=== PATIENT | female | born 1950 | race Hispanic/Latino ===

== ENCOUNTER → 2020-05-04 | Outpatient (CLI) | payer OTHER ==
[~2020-05-04] MED LIST: AMLO-73 PO; ASPI81TA40 PO; ATOR10 PO; CALC-761 PO; FOLI-74 PO; FURO20TA4 PO; LATA2.5D2 OU; METF-444 PO; OMEG1CAP6 PO
== END | disposition home or self-care (01) ==
LOC: RAH 09:29
PROVIDERS: ATTEND Internal Medicine Hematology & Oncology
DX: N63.11 Unspecified lump in the right breast, upper outer quadrant (principal); C50.919 Malignant neoplasm of unspecified site of unspecified female breast; D64.9 Anemia, unspecified; R50.9 Fever, unspecified; R53.83 Other fatigue
CPT/HCPCS: 77065

== ENCOUNTER → 2022-05-27 | Outpatient (CLI) | payer OTHER ==
[~2022-05-27] MED LIST changes: +LATA2.5D14 OU; -LATA2.5D2 OU
== END | disposition home or self-care (01) ==
LOC: RAH 13:54
PROVIDERS: ATTEND Internal Medicine Hematology & Oncology
DX: C50.919 Malignant neoplasm of unspecified site of unspecified female breast (principal); Z85.3 Personal history of malignant neoplasm of breast; D50.9 Iron deficiency anemia, unspecified; R53.83 Other fatigue
CPT/HCPCS: 77065

== ENCOUNTER → 2023-05-28 | Outpatient (CLI) | payer OTHER | END | disposition home or self-care (01) | LOC: RAH 13:39 | PROVIDERS: ATTEND Internal Medicine Hematology & Oncology | DX: C50.919 Malignant neoplasm of unspecified site of unspecified female breast (principal); R53.83 Other fatigue; D64.9 Anemia, unspecified; R50.9 Fever, unspecified; R92.2 Inconclusive mammogram | CPT/HCPCS: 77065 ==

== ENCOUNTER → 2024-06-09 | Outpatient (CLI) | payer OTHER ==
--- NOTE | 2024-06-09 10:49 | HMCIMG ---
PROCEDURE: MAMMO DX UNILATERAL RIGHT HISTORY: History of breast cancer COMPARISON: 05/28/2023 TECHNIQUE: Right breast digital diagnostic mammogram with CAD was performed. No additional views were obtained. FINDINGS: There are scattered areas of fibroglandular density. There is no evidence of a dominant mass, or suspicious microcalcification. There is no evidence of nipple retraction or skin thickening. IMPRESSION: 1. Stable right breast mammogram. BI-RADS: CATEGORY 2: BENIGN FINDINGS Recommend monthly self breast exam as well as annual clinical examination. A negative x-ray should not delay biopsy if a dominant or clinically suspicious mass is present, since 8-10% of cancers are not identified by mammography. Dense breasts unchanged may be related to intramammary lymph node. Underlying neoplasm. Some of these may be detected clinically and therefore, clinical examination is an essential part of breast evaluation.
== END | disposition home or self-care (01) ==
LOC: RAH 09:52
PROVIDERS: ATTEND Internal Medicine Hematology & Oncology
DX: C50.911 Malignant neoplasm of unspecified site of right female breast (principal); R53.83 Other fatigue; D64.9 Anemia, unspecified; R50.9 Fever, unspecified; E07.9 Disorder of thyroid, unspecified; R92.30 Dense breasts, unspecified; Z85.3 Personal history of malignant neoplasm of breast
CPT/HCPCS: 77065

== ENCOUNTER → 2025-06-10 | Outpatient (CLI) | payer OTHER ==
[~2025-06-10] MED LIST changes: -LATA2.5D14 OU; +LATA2.5D7 OU
--- NOTE | 2025-06-13 14:06 | HMCIMG ---
DIGITAL right breast DIAGNOSTIC MAMMOGRAM and left axillary mammogram Technique: The digital mammographic examination of right breast in craniocaudal, mediolateral oblique views along with CAD was obtained. Left axillary view was also obtained. History: This is a 74 years year-old female 4, para4 Ab0 . Patient has history of left breast mastectomy on 03/26/2016. Patient did not receive chemotherapy or radiation therapy. Patient has 2 sisters with family history of breast cancer. Patient is here for follow-up for mammogram from 06/09/2024. Reference:Prior mammogram from 06/02/2024 is available for comparison.. Breast composition: Breast composition B: There are scattered areas of fibroglandular density. Finding: The digital mammographic examination of right breast in craniocaudal and mediolateral oblique view along with CAD demonstrates a density measuring 1.3 cm. This is also seen in the coned-down compression view. I would recommend ultrasound for further evaluation.. Left axilla view demonstrate no recurrent tumor mass.. There is no evidence of any dendritic mass, cluster microcalcification or architectural distortion. The retromammary fat appears to be normal. IMPRESSION: Density seen in the right breast. I would recommend a right breast sonogram for further evaluation. FINAL ASSESSMENT: ACR: BI-RAD -0. Incomplete: need additional imaging evaluation. Management: Recall for additional imaging and/or comparison with prior examination(s). Likelihood of Cancer: N/A NOTE: IF A WORK-UP OF THIS PATIENT LEADS TO A BIOPSY, PLEASE FORWARD A COPY OF THE PATHOLOGY REPORT TO OUR OFFICE REQUIRED BY [facility] EFFECTIVE JUNE 15, 1994. A NEGATIVE MAMMOGRAM SHOULD NOT PRECLUDE BIOPSY OF A CLINICALLY PALPABLE SUSPICIOUS MASS, 10% OF BREAST CANCERS ARE MAMMOGRAPHICALLY OCCULT. THIS MAMMOGRAPHY FACILITY IS FULLY ACCREDITED BY THE [employer] AND [employer] (FDA). THANK YOU FOR THIS REFERRAL.
== END | disposition home or self-care (01) ==
LOC: RAH 10:58
PROVIDERS: ATTEND Internal Medicine Hematology & Oncology
DX: R92.321 Mammographic fibroglandular density, right breast (principal); R53.83 Other fatigue; C50.911 Malignant neoplasm of unspecified site of right female breast; D64.9 Anemia, unspecified; R50.9 Fever, unspecified; E07.9 Disorder of thyroid, unspecified; Z90.12 Acquired absence of left breast and nipple; Z85.3 Personal history of malignant neoplasm of breast; Z80.3 Family history of malignant neoplasm of breast
CPT/HCPCS: 77065

== ENCOUNTER → 2025-06-28 | Outpatient (CLI) | payer OTHER ==
--- NOTE | 2025-07-02 16:21 | HMCIMG ---
Right BREAST ULTRASOUND: CLINICAL HISTORY: Follow-up for mammogram from 06/10/2024 with a density seen in the right breast. Patient has history of left breast cancer. Finding: Real-time examination of the [right/left] breast demonstrates heterogeneous echotexture throughout the breast. Right breast between 10:30 and 11:00 there is a hypoechoic nodule measuring 1.3 x 0.4 x 0.7 cm. There are no other nodules cyst seen in the right breast.. IMPRESSION: Right breast is a hypoechoic nodules seen between 10:30 and 11:00 which is amenable for ultrasound-guided biopsy for histological sampling.. FINAL ASSESSMENT: ACR: BI-RAD -4. Suspicious: Finding(s) without all the characteristics morphology of breast cancer but indicatingadefine probability of being malignant: biopsy should be considered.
== END | disposition home or self-care (01) ==
LOC: RAH 13:21
PROVIDERS: ATTEND Internal Medicine Hematology & Oncology
DX: N63.11 Unspecified lump in the right breast, upper outer quadrant (principal); R92.321 Mammographic fibroglandular density, right breast; C50.919 Malignant neoplasm of unspecified site of unspecified female breast; D64.9 Anemia, unspecified; E07.9 Disorder of thyroid, unspecified; R53.83 Other fatigue; R50.9 Fever, unspecified
CPT/HCPCS: 76641

== ENCOUNTER → 2025-07-14 | Outpatient (CLI) | payer OTHER ==
[2025-07-14 08:44] LABS: IMMATURE GRANULOCYTE ABSOLUTE 0.03 K/uL (0-1); NUCLEATED RED BLOOD CELLS 0.0 % (0.0-0.19); PLATELET COUNT (AUTO) 203 K/uL (130-400); RED BLOOD CELL COUNT(AUTO) 3.73 MIL/uL (4.00-5.50); RED CELL DISTRIBUTION WIDTH 13.7 % (11.0-15.5); WHITE BLOOD COUNT (AUTO) 7.8 K/uL (4.8-10.8)
[2025-07-14 08:54] LABS: INR 1.03 (0.85-1.15)
[2025-07-14 08:58] LABS: ASPARTATE AMINOTRANSFERASE 20.0 U/L (10-37); CREATININE 0.8 mg/dL (0.5-1.0); GLOMERULAR FILTR. RATE CALC 76.0 mL/min (>90); GLUCOSE,RANDOM 139.0 mg/dL (70-105); SODIUM SERUM 142.0 mmol/L (136-145); TOTAL PROTEIN, SERUM 7.2 g/dL (6.0-8.3); UREA NITROGEN, BLOOD 17.0 mg/dL (7-18)
--- NOTE | 2025-07-14 09:45 | NUR ---
U/S GD RT BREAST BX PROCEDURE PERFORMED BY DR Terri REDMOND. PUNCTURE SITE RT BREAST AT 11 O'CLOCK AND PATIENT TOLERATED PROCEDURE WELL. SPECIMEN X 3 COLLECTED AND SENT TO LAB. TISSUE MARKER DEPLOYED AT BIOPSY NEEDLE REMOVED. END OF PROCEDURE AT 0915. DRESSING APPLIED AND NO BLEEDING NOTED. POST MAMMOGRAPHY IMAGES TAKEN FOR TISSUE MARKER VERIFICATION. DISCHARGE INSTRUCTIONS GIVEN TO PATIENT AND VERBALIZED UNDERSTANDING. DISCHARGED VIA AMBULATION AT 0945 AAO X3 WITH NO C/O PAIN.
--- NOTE | 2025-07-14 11:05 | HMCIMG ---
DIGITAL right DIAGNOSTIC MAMMOGRAM postbiopsy Technique: The digital mammographic examination of right breast in craniocaudal, mediolateral oblique views along with CAD was obtained. History: This is a 74 years year-old female 4, para4 Ab0 . Patient has no family history of breast cancer. Patient patient has ultrasound-guided right breast biopsy at 1030 with placement of a biopsy marker Reference:Prior mammogram from 06/10/2025, 06/09/2024, 05/28/2023, 05/27/2022, 05/25/2021 and 05/04/2020 are available.. Breast composition: Breast composition B: There are scattered areas of fibroglandular density. Finding: The digital mammographic examination of right breast in craniocaudal and mediolateral oblique view along with CAD demonstrates biopsy marker in satisfactory position at 1030.. There is no evidence of any dendritic mass, cluster microcalcification or architectural distortion. The retromammary fat appears to be normal. IMPRESSION: Biopsy marker in satisfactory position.. Pathology report is pending. FINAL ASSESSMENT: Post-procedure Mammogram for Marker Placement. NOTE: IF A WORK-UP OF THIS PATIENT LEADS TO A BIOPSY, PLEASE FORWARD A COPY OF THE PATHOLOGY REPORT TO OUR OFFICE REQUIRED BY [facility] EFFECTIVE JUNE 15, 1994. A NEGATIVE MAMMOGRAM SHOULD NOT PRECLUDE BIOPSY OF A CLINICALLY PALPABLE SUSPICIOUS MASS, 10% OF BREAST CANCERS ARE MAMMOGRAPHICALLY OCCULT. THIS MAMMOGRAPHY FACILITY IS FULLY ACCREDITED BY THE [employer] (FDA). THANK YOU FOR THIS REFERRAL.
--- NOTE | 2025-07-14 11:12 | HMCIMG ---
PERCUTANEOUS ULTRASOUND-GUIDED BIOPSY OF right BREAST MASS: CLINICAL HISTORY: This is a 74 [id number] female with right breast lesion at 10:30 for ultrasound-guided biopsy. The risk and benefit was explained to the patient. The risks include bleeding and infection. The patient consented to the procedure. Procedure: Under ultrasound guidance right breast lesion was localized was localized. After sterile prep and drape, 1% Xylocaine was used for local anesthetic. Using a 14-gauge Bard gun a total of 4 core biopsy was obtained. The specimen was sent for histology and cell block. Patient tolerated procedure well. IMPRESSION: FINAL ASSESSMENT: Post-procedure Mammogram for Marker Placement. 1. PERCUTANEOUS ULTRASOUND-GUIDED BIOPSY OF right BREAST WITH SPECIMENS SENT FOR HISTOLOGY AND CELL BLOCK. THE PATIENT TOLERATED PROCEDURE WELL. PATHOLOGY REPORT IS PENDING. 2. PATIENT IS TO HAVE A POST BIOPSY MARKER PLACEMENT UNILATERAL right BREAST MAMMOGRAM.
== END ==
LOC: RAH 08:12
PROVIDERS: ATTEND Internal Medicine Hematology & Oncology
DX: N63.11 Unspecified lump in the right breast, upper outer quadrant (principal); D24.1 Benign neoplasm of right breast; R92.311 Mammographic fatty tissue density, right breast; I10 Essential (primary) hypertension; E78.5 Hyperlipidemia, unspecified; E11.9 Type 2 diabetes mellitus without complications; Z86.2 Personal history of diseases of the blood and blood-forming organs and certain disorders involving the immune mechanism; Z83.3 Family history of diabetes mellitus; Z82.5 Family history of asthma and other chronic lower respiratory diseases; Z79.899 Other long term (current) drug therapy; Z98.890 Other specified postprocedural states
CPT/HCPCS: 19083; 77065; 80053; 85025; 85610; 85730; 36415; 88305; A4215 ×2